=== PATIENT | female | born 1990 | race Caucasian/White ===

== ENCOUNTER 2019-05-03 08:55 | Emergency (ER) ==
[2019-05-03 09:07] VITALS: BP 118/83; TEMP 98.2; BMI 28.8
--- NOTE | 2019-05-03 09:39 | ED.PDOC ---
General ED Provider: Dr. SUZI FOY Chief Complaint: Abdominal Pain Stated Complaint: Patient, a 28 y/o cauc female complains of a burning sensation in her abdomen that is intermittent. In addition has experienced diarrhea X 1 but no nausea or emesis. Notes pain is more prominent when lying on her side. Time Seen by Physician: 09:15 Mode of Arrival: Walk-In Information Source: Patient Nursing and Triage Documentation Reviewed and Agree: Yes Does patient meet sepsis criteria?: No System Inflammatory Response Syndrome: Not Applicable Sepsis Protocol: For patient's 13 years and over: Temp is 96.8 and below OR 101 and greater Pulse >90 BPM Resp >20/minute Acutely Altered Mental Status Are patient's symptoms suggestive of a new infection, such as: -Pneumonia -Skin, Soft Tissue -Endocarditis -UTI -Bone, Joint Infection -Implantable Device -Acute Abdominal Infection -Wound Infection -Meningitis -Blood Stream Catheter Infection -Unknown GI Complaint Exam - Abdominal Pain Complaint/Exam Onset: Gradual Duration: 3 days Symptoms Are: Still present Timing: Intermittent Initial Severity: Moderate Current Severity: Moderate Location of Pain: RLQ, LLQ Character: Reports: Aching, Burning, Cramping Aggravating: Reports: None Alleviating: Reports: None Associated Signs and Symptoms: Reports: Nausea, Diarrhea. Denies: Diaphoresis, Fever, Cough, Chest pain, Dizziness, Back pain, Constipation, Blood in stool, Dysuria, Urinary frequency, Decreased urine output, Decreased appetite, Vaginal bleeding, Vaginal discharge, Vomiting, Sore throat, Decreased activity Related History: Reports: Similar episode Review of Systems - Review Of Systems Constitutional: Reports: No symptoms Eyes: Reports: No symptoms Ears, Nose, Mouth, Throat: Reports: No symptoms Respiratory: Reports: No symptoms Cardiac: Reports: No symptoms GI: Reports: No symptoms, Abdominal pain : Reports: No symptoms, Other (LMP 2 weeks ago) Musculoskeletal: Reports: No symptoms Skin: Reports: No symptoms Neurological: Reports: No symptoms Endocrine: Reports: No symptoms Hematologic/Lymphatic: Reports: No symptoms All Other Systems: Reviewed and Negative Past Medical History - Past Medical History Previously Healthy: Yes Endocrine: Reports: None Cardiovascular: Reports: None Respiratory: Reports: None Hematological: Reports: None Gastrointestinal: Reports: None Genitourinary: Reports: None Neuro/Psych: Reports: None Musculoskeletal: Reports: None Cancer: Reports: None Last Menstrual Period: 2 weeks - Surgical History General Surgical History: Reports: None - Family History Family History: Reports: None - Social History Smoking Status: Former smoker Hx Substance Use: No Alcohol Screening: Occasionally - Immunizations Tetanus Shot up to Date: No Physical Exam - Physical Exam Appearance: Well-appearing, No pain distress, Well-nourished Pain Distress: Mild Eyes: KEY, EOMI, Conjunctiva clear ENT: Ears normal, Nose normal, Oropharynx normal Respiratory: Airway patent, Breath sounds clear, Breath sounds equal, Respirations nonlabored Cardiovascular: RRR, Pulses normal, No rub, No murmur GI/: Soft, No masses, Bowel sounds normal, No Organomegaly, Tender Musculoskeletal: Normal strength, ROM intact, No edema, No calf tenderness Skin: Warm, Dry, Normal color Neurological: Sensation intact, Motor intact, Reflexes intact, Cranial nerves intact, Alert, Oriented Psychiatric: Affect appropriate, Mood appropriate Critical Care Note - Critical Care Note Total Time (mins): 0 Course - Course Hematology/Chemistry: 05/03/19 09:49 05/03/19 09:49 Orders, Labs, Meds: Lab Review 05/03/19 05/03/19 05/03/19 09:49 09:49 10:22 WBC 9.40 RBC 4.68 Hgb 14.1 Hct 41.6 MCV 88.9 MCH 30.1 MCHC 33.9 RDW Coeff of Jose Raul 12.3 Plt Count 217 Immature Gran % (Auto) 0.2 Neut % (Auto) 73.4 Lymph % (Auto) 16.5 Bucks % (Auto) 9.4 Eos % (Auto) 0.4 Baso % (Auto) 0.1 Immature Gran # (Auto) 0.0 Neut # (Auto) 6.9 Lymph # (Auto) 1.6 Bucks # (Auto) 0.9 Eos # (Auto) 0.0 Baso # (Auto) 0.0 Sodium 137.8 Potassium 4.29 Chloride 106.8 Carbon Dioxide 22.0 Anion Gap 13.29 BUN 13.2 Creatinine 0.75 Estimated GFR (MDRD) 93.00 BUN/Creatinine Ratio 17.60 Glucose 110.2 H Calcium 8.92 Total Bilirubin 0.57 AST 21.0 ALT 19.3 Alkaline Phosphatase 57.0 Total Protein 6.74 Albumin 4.09 Globulin 2.65 Albumin/Globulin Ratio 1.54 Amylase 57.0 Lipase 31.8 Urine Color Urine Clarity Urine pH Ur Specific Prim Urine Protein Urine Glucose (UA) Urine Ketones Urine Blood Urine Nitrite Urine Bilirubin Urine Urobilinogen Ur Leukocyte Esterase Urine Microscopic RBC Urine Microscopic WBC Ur Squamous Epith Cells Urine Bacteria Urine Test Urine Opiates Screen Negative Ur Oxycodone Screen Negative Urine Methadone Screen Negative Ur Propoxyphene Screen Negative Ur Barbiturates Screen Negative U Tricyclic Antidepress Negative Ur Phencyclidine Scrn Negative Ur Amphetamine Screen Negative U Methamphetamines Scrn Negative U Benzodiazepines Scrn Negative Urine Cocaine Screen Negative U Cannabinoids Screen Negative 05/03/19 05/03/19 10:22 10:22 WBC RBC Hgb Hct MCV MCH MCHC RDW Coeff of Jose Raul Plt Count Immature Gran % (Auto) Neut % (Auto) Lymph % (Auto) Bucks % (Auto) Eos % (Auto) Baso % (Auto) Immature Gran # (Auto) Neut # (Auto) Lymph # (Auto) Bucks # (Auto) Eos # (Auto) Baso # (Auto) Sodium Potassium Chloride Carbon Dioxide Anion Gap BUN Creatinine Estimated GFR (MDRD) BUN/Creatinine Ratio Glucose Calcium Total Bilirubin AST ALT Alkaline Phosphatase Total Protein Albumin Globulin Albumin/Globulin Ratio Amylase Lipase Urine Color Yellow Urine Clarity Clear Urine pH 5.0 Ur Specific Prim 1.025 Urine Protein Negative Urine Glucose (UA) Negative Urine Ketones Negative Urine Blood Negative Urine Nitrite Negative Urine Bilirubin Negative Urine Urobilinogen 0.2 Ur Leukocyte Esterase 1+ Urine Microscopic RBC 2-5 Urine Microscopic WBC 5-10 Ur Squamous Epith Cells 0-2 Urine Bacteria Trace Urine Test Negative Urine Opiates Screen Ur Oxycodone Screen Urine Methadone Screen Ur Propoxyphene Screen Ur Barbiturates Screen U Tricyclic Antidepress Ur Phencyclidine Scrn Ur Amphetamine Screen U Methamphetamines Scrn U Benzodiazepines Scrn Urine Cocaine Screen U Cannabinoids Screen Orders Category Date Time Status AMYLASE Stat LAB 05/03/19 09:49 Completed CBC W/ AUTO DIFF Stat LAB 05/03/19 09:49 Completed CMP [COMPREHENSIVE METABOLIC PANEL] Stat LAB 05/03/19 09:49 Completed LIPASE Stat LAB 05/03/19 09:49 Completed UA [URINALYSIS C & S IF INDICATED] Stat LAB 05/03/19 10:22 Completed URINE CULTURE Stat LAB 05/03/19 10:52 Received URINE DRUG SCREEN (RAPID FOR ED) [DRUG SCREEN, URINE, LAB 06/15/19 10:22 Completed RAPID] Stat URINE Stat LAB 05/03/19 10:[address] ABDOMEN/PELVIS WO CONTRAST Stat RADS 05/03/19 09:40 Completed Vital Signs: Temp Pulse Resp BP Pulse Ox 05/03/19 08:56 98.2 F 97 H 18 118/83 97 Departure - Departure Time of Disposition: 11:30 Disposition: HOME SELF-CARE Discharge Problem: Abdominal discomfort in right lower quadrant, Renal calculus, right, Free fluid in pelvis, UTI (urinary tract infection), Mittelschmerz, Pulmonary nodule Discharge Problem: (Ruled Out): Pain due to calculus of kidney Instructions: [place]elschmerz (ED), Urinary Tract Infection in Women (ED), Pulmonary Nodules (ED) Condition: Good Pt referred to PMD for follow-up: Yes IPMP verified?: No Additional Instructions: Force fluids Meds as directed See PCP in 5 days Follow up apt with PCP/needs f/u pulm nodule in 6 mo-1 yr Allergies/Adverse Reactions: Allergies No Known Allergies Allergy (Unverified 05/03/19 09:15) Home Medications: Ambulatory Orders Nitrofurantoin Macrocrystal [Macrodantin] 100 mg PO BID #20 capsule 05/03/19 Disposition Discussed With: Patient, Family
[2019-05-03 10:36] LABS: URINE PREGNANCY TEST NEGATIVE (NEGATIVE)
--- NOTE | 2019-05-03 11:03 | CT ---
EXAM: CT abdomen and pelvis without contrast. HISTORY: Abdominal pain. TECHNIQUE: Multi-slice transaxial helical CT. Coronal and sagittal reformatons were performed. COMPARISON: None FINDINGS: The heart is normal in size. Tiny 2 mm pulmonary nodule in the left lung base is seen. Evaluation of the solid organs is limited without IV contrast. The spleen and the gallbladder are no rmal in size. No pericholecystic inflammation is seen. The pancreas and the bilateral adrenal gland s appear grossly unremarkable. Punctate nonobstructing calculus in the inferior pole of the right ki dney is seen. No evidence of hydronephrosis is seen. No intrahepatic biliary ductal dilation is see n. The bowel is not dilated. The appendix appears normal in size. Urinary bladder is not well distende d. The uterus appears grossly unremarkable. Trace pelvic free fluid is seen. No retroperitoneal ad enopathy is seen. Tiny fat containing periumbilical hernia is seen. Osseous structures appear gross ly unremarkable. IMPRESSION: 1. No acute abdominal findings. 2. Punctate nonobstructing right renal calculus. No hydronephrosis. 3. 2 mm tiny left basilar pulmonary nodule. If the patient is low risk, no further follow-up is rec ommended. If the patient is high risk, consider follow-up CT chest in 12 months to demonstrate stabi lity. 4. Trace pelvic free fluid which is nonspecific.
== END 2019-05-03 12:02 | disposition home or self-care (01) ==
LOC: ED 08:55
DX: N20.0 Calculus of kidney (principal); N39.0 Urinary tract infection, site not specified; N94.0 Mittelschmerz; R91.1 Solitary pulmonary nodule
CPT/HCPCS: 36415; 80053; 80306; 81001; 81025; 82150; 83690; 85025; 87086; 99283